=== PATIENT | male | born 1965 | race Caucasian/White ===

== ENCOUNTER 2021-03-01 18:51 | Emergency (ER) | payer OTHER ==
[~2021-03-01] VITALS: Ht 180.3 cm; Wt 109.1 kg
--- NOTE | 2021-03-01 19:13 | PHYS DOC ---
General Adult EDM: Chief Complaint: BLOOD SUGAR PROBLEM HPI: HPI: Patient is a 55-year-old male who presents to the ER for hyperglycemia. Patient reports that he has had a headache, lightheadedness and tingling in his head so he went to urgent care because his blood sugars have been elevated and they told him that he had glucose in his urine and needed to go to the emergency department. Patient takes Jardiance, Metformin, Ozempic and Tresiba. Patient reports that his headache has resolved but he still is having lightheadedness. (ROBE OLIVER APRN) Review of Systems: Review of Systems: Constitutional: Denies fever or chills Eyes: Denies change in visual acuity Neurologic: See HPI Endocrine: Denies polyuria or polydipsia Psychiatric: Denies depression or anxiety (ROBE OLIVER APRN) Physical Exam: PE: Constitutional: Well developed, well nourished, no acute distress, non-toxic appearance. [] HENT: Normocephalic, atraumatic, bilateral external ears normal, oropharynx moist, no oral exudates, nose normal. [] Eyes: PERRL, EOMI, conjunctiva normal, no discharge. [] Neck: Normal range of motion, no tenderness, supple, no stridor. [] Cardiovascular:Heart rate regular rhythm, no murmur [] Lungs & Thorax: Bilateral breath sounds clear to auscultation [] Abdomen: Bowel sounds normal, soft, no tenderness, no masses, obese, no pulsatile masses. [] Skin: Warm, dry, no erythema, no rash. [] Back: Normal ROM Extremities: No tenderness, no cyanosis, no clubbing, ROM intact, no edema. [] Neurologic: Alert and oriented X 3, normal motor function, normal sensory function, no focal deficits noted. [] Psychologic: Affect normal, judgement normal, mood normal. [] (ROBE OLIVER APRN) Current Patient Data: Labs: Laboratory Tests Test 03/01/21 18:58 03/01/21 19:10 03/01/21 20:20 Glucose (Fingerstick) 325 mg/dL 261 mg/dL White Blood Count 7.6 x10^3/uL Red Blood Count 6.37 x10^6/uL Hemoglobin 17.0 g/dL Hematocrit 54.2 % Mean Corpuscular Volume 85 fL Mean Corpuscular Hemoglobin 27 pg Mean Corpuscular Hemoglobin Concent 31 g/dL Red Cell Distribution Width 16.8 % Platelet Count 118 x10^3/uL Neutrophils (%) (Auto) 84 % Lymphocytes (%) (Auto) 11 % Monocytes (%) (Auto) 5 % Eosinophils (%) (Auto) 0 % Basophils (%) (Auto) 0 % Neutrophils # (Auto) 6.4 x10^3uL Lymphocytes # (Auto) 0.9 x10^3/uL Monocytes # (Auto) 0.4 x10^3/uL Eosinophils # (Auto) 0.0 x10^3/uL Basophils # (Auto) 0.0 x10^3/uL Sodium Level 135 mmol/L Potassium Level 4.5 mmol/L Chloride Level 102 mmol/L Carbon Dioxide Level 22 mmol/L Anion Gap 11 Blood Urea Nitrogen 26 mg/dL Creatinine 1.1 mg/dL Estimated GFR (Cockcroft-Gault) 69.8 BUN/Creatinine Ratio 24 Glucose Level 336 mg/dL Calcium Level 8.6 mg/dL Total Bilirubin 0.5 mg/dL Aspartate Amino Transf (AST/SGOT) 68 U/L Alanine Aminotransferase (ALT/SGPT) 102 U/L Alkaline Phosphatase 230 U/L Total Protein 7.5 g/dL Albumin 3.5 g/dL Albumin/Globulin Ratio 0.9 Acetone Level Neg Current Medications Medications (Trade) Dose Ordered Sig/Vilma Route PRN Reason Start Time Stop Time Status Last Admin Dose Admin Sodium Chloride 1,000 ml @ 1,000 mls/hr 1X ONCE IV 03/01/21 19:15 03/01/21 20:14 DC 03/01/21 19:15 Laboratory Tests Test 03/01/21 18:58 Glucose (Fingerstick) 325 mg/dL (70-99) H (ROBE OLIVER APRN) EKG: EKG: [] (ROBE OLIVER APRN) Radiology/Procedures: Radiology/Procedures: [] (ROBE OLIVER APRN) Heart Score: C/O Chest Pain: No Risk Factors: Risk Factors: DM, Current or recent (<one month) smoker, HTN, HLP, family history of CAD, obesity. Risk Scores: Score 0 - 3: 2.5% MACE over next 6 weeks - Discharge Home Score 4 - 6: 20.3% MACE over next 6 weeks - Admit for Clinical Observation Score 7 - 10: 72.7% MACE over next 6 weeks - Early Invasive Strategies (ROBE OLIVER APRN) Course & Med Decision Making: Course & Med Decision Making Pertinent Labs and Imaging studies reviewed. (See chart for details) [] Patient is a 55-year-old male who presents in the ER for hyperglycemia. Work-up in the ER consisted of blood work. Patient reports that his headache has resolved. Patient treated with IV fluids. Patient's blood sugar upon arrival was 325. Following administration of a liter of normal saline, patient's blood sugar is 265. He has no anion gap, negative for ketones. Patient advised to continue taking his medications as directed and follow-up with his primary care provider. He was also educated to continue to monitor his blood sugars at home. I discussed with patient all findings and diagnostic testing as well as the need to follow-up with PCP for further evaluation and treatment or return to the ER if any new or worsening symptoms. Strict return precautions were also discussed at length. Patient voiced understanding and agreement with the plan. Patient is hemodynamically stable at the time of disp osition. (ROBE OLIVER APRN) Dragon Disclaimer: Dragon Disclaimer: This electronic medical record was generated, in whole or in part, using a voice recognition dictation system. (ROBE OLIVER APRN) Departure Departure: Impression: Primary Impression: Hyperglycemia Disposition: 01 HOME / SELF CARE / HOMELESS Condition: GOOD Referrals: URBANO STEWART (PCP) Patient Instructions: Hyperglycemia Additional Instructions: You are seen in the emergency department today for elevated blood sugar. This was lowered with IV fluids. Continue to take your diabetic meds as directed and continue to monitor your blood sugars at home. Follow-up with your primary care provider tomorrow regarding your ER visit. Please return to the emergency department if you develop chest pain, shortness of breath, dizziness or any new or worsening concerns. EMERGENCY DEPARTMENT GENERAL DISCHARGE INSTRUCTIONS Thank you for coming to [facility] ([facility]) today and trusting us with you care. We trust that you had a positivie experience in our Emergency Department. If you wish to speak to the department management, you may call the director at [phone]. YOUR FOLLOW UP INSTRUCTIONS ARE FOLLOWS: 1. Do you have a private Doctor? If you do not have a private doctor, please ask for a resource list of physicians or clinics that may be able to assist you with follow up care. 2. The Emergency Physician has interpreted your x-rays. The X-Ray specialist will also review them. If there is a change in the findings, you will be notified in 48 hours when at all possible. 3. A lab test or culture has been done, your results will be reviewed and you will be notified if you need a change in treatment. ADDITIONAL INSTRUCTIONS AND INFORMATION: 1. Your care today has been supervised by a physician who is specially trained in emergency care. Many problems require more than one evaluation for a complete diagnosis and treatment. We recommend that you schedule your follow up appointment as recommended to ensure complete treatment of you illness or injury. If you are unable to obtain follow up care and continue to have a problem, or if your condition worsens, we recommend that you return to the ED. 2. We are not able to safely determine your condition over the phone nor are we able to give sound medical advice over the phone. For these safety reasons, if you call for medical advice we will ask you to come to the ED for further evaluation. 3. If you have any questions regarding these discharge instructions please call the ED at [phone]. SAFETY INFORMATION: In the interest of safety, wellness, and injury prevention; we encourage you to wear your sealbelt, if you smoke; quite smoking, and we encourage family to use a protective helmet for bicycling and other sporting events that present an increased risk for head injury. IF YOUR SYMPTOMS WORSEN OR NEW SYMPTOMS DEVELOP, OR YOU HAVE CONCERNS ABOUT YOUR CONDITION; OR IF YOUR CONDITION WORSENS WHILE YOU ARE WAITING FOR YOUR FOLLOW UP APPOINTMENT; EITHER CONTACT YOUR PRIMARY CARE DOCTOR, THE PHYSICIAN WHOSE NAME AND NUMBER YOU WERE GIVEN, OR RETURN TO THE ED IMMEDIATELY. Attending Signature Attending Signature I have reviewed the PA/FURNITURE FABRICATOR's note and plan of care. I was available for co nsultation as needed during the patient's visit in the emergency department. I agree with the clinical impression, plan, and disposition. (JAROD RICHARD DO) ROBE OLIVER APRN Mar 01, 2021 19:13 JAROD RICHARD DO Mar 01, 2021 22:16
[2021-03-01] MEDS ORDERED: IV NORMAL SALINE 1,000ML 1,000 ML IV ONE (19:15)
[2021-03-01 19:22] VITALS: BP 155/89
[2021-03-01 19:44] LABS: CALCIUM 8.6 mg/dL (8.5-10.1); CREATININE 1.1 mg/dL (0.7-1.3); GFR 69.8; POTASSIUM 4.5 mmol/L (3.5-5.1)
[2021-03-01 19:56] LABS: ALBUMIN 3.5 g/dL (3.4-5.0); ALBUMIN/GLOBULIN RATIO 0.9 (1.0-1.7); TOTAL BILIRUBIN 0.5 mg/dL (0.2-1.0); TOTAL PROTEIN 7.5 g/dL (6.4-8.2)
[2021-03-01 20:10] LABS: BASO % 0 % (0-3); EOS % 0 % (0-3); HEMATOCRIT 54.2 % (39.0-53.0); LYMPH # 0.9 x10^3/uL (1.0-4.8); LYMPH % 11 % (24-48); MEAN CORPUSCULAR HEMOGLOBIN 27 pg (25-35); MEAN CORPUSCULAR HGB CONC 31 g/dL (31-37); MEAN CORPUSCULAR VOLUME 85 fL (79-100); MONO # 0.4 x10^3/uL (0.0-1.1); MONO % 5 % (0-9); NEUT # 6.4 x10^3uL (1.8-7.7); NEUT % 84 % (31-73); PLATELET COUNT 118 x10^3/uL (140-400); RED BLOOD COUNT 6.37 x10^6/uL (4.30-5.70); RED CELL DISTRIBUTION WIDTH 16.8 % (11.5-14.5); WHITE BLOOD COUNT 7.6 x10^3/uL (4.0-11.0)
[2021-03-01 20:55] LABS: CLARITY,URINE CLEAR; COLOR,URINE YELLOW
[2021-03-01 20:56] LABS: BACTERIA,URINE 0 /HPF (0-FEW); BILIRUBIN,URINE NEG (NEG); GLUCOSE,URINE 500 mg/dL (NEG); NITRITE,URINE NEG (NEG); RBC,URINE 0 /HPF (0-2); UROBILINOGEN,URINE 0.2 mg/dL (0.2 mg/dL); WBC,URINE 0 /HPF (0-4)
== END 2021-03-01 20:47 | disposition home or self-care (01) ==
LOC: ER 18:51
DX: R73.9 Hyperglycemia, unspecified (principal); R51.9 Headache, unspecified; R42 Dizziness and giddiness
CPT/HCPCS: 36415; 80053; 81001; 82010; 82947; 85025; 96360; 99283; J7030

== ENCOUNTER 2021-07-02 10:44 | Emergency (ER) | payer OTHER ==
[~2021-07-02] VITALS: Ht 180.3 cm; Wt 111.0 kg
[2021-07-02] MEDS: DIPHTH,PERTUSS(ACELL),TET TOX 0.5 ML DISP.SYRIN. VAX IM ONE (11:21)
--- NOTE | 2021-07-02 11:26 | PHYS DOC ---
Past History Past Surgical History: Other Additional Past Surgical Histo: UMBILICAL HERNIA REPAIR (BLAISE GEORGE APRN) Alcohol Use: Rarely (BLAISE GEORGE APRN) Adult General Chief Complaint Chief Complaint: LACERATION/AVULSION HPI HPI Patient is a 56-year-old male who presents emergency department with chief complaint of a scalp laceration. Patient states he was shoveling snow just prior to arrival when he slipped and fell backwards striking his head on a concrete porch edge. Patient denies loss of consciousness, reports mild head pain, denies neck pain. Patient denies visual disturbances, dizziness, syncopal or near syncopal episodes. Patient denies nausea. Patient denies injuring other parts of his body. Patient denies other physical complaints or physical concerns. Patient reports his last tetanus immunization was greater than 5 years ago. Denies allergies to medications. Patient reports a past medical history of HIV, type 2 diabetes, states he is being worked up for hypertension by his primary care physician but has not been started on blood pressure medica tions as of this time. (BLAISE GEORGE APRN) Review of Systems Review of Systems 14 body systems of review of systems have been reviewed. See HPI for pertinent positives and negative responses, otherwise all other systems are negative, nonpertinent or noncontributory. Constitutional: Negative except as outlined in HPI above. Skin: Negative except as outlined in HPI above. Eyes: Negative except as outlined in HPI above. HENT: Negative except as outlined in HPI above. Respiratory: Negative except as outlined in HPI above. Cardiovascular: Negative except as outlined in HPI above. GI: Negative except as outlined in HPI above. : Negative except as outlined in HPI above. Musculoskeletal: Negative except as outlined in HPI above. Integument: Negative except as outlined in HPI above. Neurologic: Negative except as outlined in HPI above. Endocrine: Negative except as outlined in HPI above. Lymphatic: Negative except as outlined in HPI above. Psychiatric: Negative except as outlined in HPI above. (BLAISE GEORGE APRN) Current Medications Current Medications Current Medications Medications (Trade) Dose Ordered Sig/Vilma Start Time Stop Time Status Last Admin Dose Admin Diphtheria/ Tetanus/Acell Pertussis (Boostrix) 0.5 ml ONCE ONCE 07/02/21 11:15 07/02/21 11:18 DC 07/02/21 11:21 0.5 ML (BLAISE GEORGE APRN) Allergies Allergies Allergies Coded Allergies Type Severity Reaction Last Updated Verified No Known Drug Allergies 07/02/21 No (BLAISE GEORGE APRN) Physical Exam Physical Exam Constitutional: Well developed, well nourished, no acute distress, non-toxic appearance. 56-year-old male holding bandaged tobacco head otherwise in no apparent distress. HENT: Normocephalic, contusion with laceration to occipital parietal scalp, laceration is partial skin thickness, bleeding controlled with pressure bandage, no skull depression or crepitus appreciated, contusion with laceration measuring 4 cm. No raccoon eyes, no donis's sign, bilateral TMs intact and within normal limits, no malocclusion, patient speaking in normal voice tones. Eyes: Conjunctiva normal, no discharge. Satisfactory 6 cardinal eye movements. Neck: Normal range of motion, no stridor. No C-spine pain to palpation, no pain to palpation of muscular structures of the neck. Cardiovascular: No cyanosis appreciated, distal cap refill less than 2 seconds. Regular rate and rhythm. 1 S2. Lungs & Thorax: Patient is in no respiratory distress, no audible adventitious lung sounds appreciated. Abdomen: Nontender, no abnormalities noted. Skin: Warm, dry, no erythema, no rash. See HEENT note for focused skin examination. Back: No tenderness, no deformities. Extremities: No tenderness, no cyanosis, no clubbing, ROM intact, no edema. Neurologic: Alert and oriented X 3, normal motor function, normal sensory function, no focal deficits noted. Psychologic: Affect normal, judgement normal, mood normal. (BLAISE GEORGE APRN) Current Patient Data Vital Signs Vital Signs Date Time Temp Pulse Resp B/P (MAP) Pulse Ox O2 Delivery O2 Flow Rate FiO2 07/02/21 11:08 98.7 110 18 187/104 (131) 97 Room Air (BLAISE GEORGE APRN) EKG EKG [] (BLAISE GEORGE APRN) Radiology/Procedures Radiology/Procedures REASON: Slip and fall, occipital parietal laceration PROCEDURE: CT HEAD AND CERVICAL SPINE WO STUDY: CT head and cervical spine without contrast INDICATION: Fall. Scalp injury. COMPARISON: None. TECHNIQUE: Axial CT imaging through the head and cervical spine without the use of intravenous contrast. Sagittal and coronal reformats were obtained. One or more of the following individualized dose reduction techniques were utilized for this examination: 1. Automated exposure control 2. Adjustment of the mA and/or kV according to patient size 3. Use of iterative reconstruction technique. FINDINGS: CT head: No acute intracranial hemorrhage. Portillo-white matter differentiation is maintained. No localized mass effect, midline shift or hydrocephalus. Left paramidline parietal scalp contusion/laceration approaching the vertex, image 28 series 2. No depressed calvarial fracture. Normally aerated mastoid air cells and partially imaged paranasal sinuses. CT cervical spine: No acute fracture or traumatic malalignment. No paraspinous hematoma. Multilevel degenerative changes to include the atlantodental interface. Osseous neural foraminal narrowing greatest bilaterally at C6-C7. Central canal stenosis also favored greatest at C6-C7 but incompletely characterized. There may be a small right thyroid lobe nodule but not meeting size criteria for dedicated follow-up. IMPRESSION: CT head: 1. Posterior/left paramidline scalp contusion/laceration. No depressed calvarial fracture or acute intracranial hemorrhage. CT cervical spine: 1. No acute fracture or traumatic malalignment. 2. Degenerative changes greatest at C6-C7. Electronically signed by: SHIVAM FLAHERTY MD (07/02/2021 12:21 PM) [id number] (BLAISE GEORGE APRN) Heart Score C/O Chest Pain: No Risk Factors: Risk Factors: DM, Current or recent (<one month) smoker, HTN, HLP, family history of CAD, obesity. Risk Scores: Risk Factors: DM, Current or recent (<one month) smoker, HTN, HLP, family history of CAD, obesity. (BLAISE GEORGE APRN) Course & Med Decision Making Course & Med Decision Making Pertinent Labs and Imaging studies reviewed. (See chart for details) 56-year-old male, vital signs reviewed, presents emerged from concerning scalp laceration after slip and fall while shoveling snow. See laceration repair note, will CT head and C-spine, patient's tetanus immunization was greater than 5 years, will bring up-to-date with Tdap medication injection. Offered pain medication, patient denies need at this time. CT head and C-spine negative for acute findings. Patient reports his head and neck are starting to ache more, will order p.o. pain medications. Discussed with patient stapled laceration closure care, reviewed head injury precautions, reviewed Tdap immunization, discussed with patient strict follow-up primary care for staple removal, ongoing evaluation of hypertension, return to ER precautions or concerns, patient gave verbal understanding of and is amenable to ED discharge planning. Discussed with the patient all findings and diagnostic testing as well as the need to follow-up with their primary care provider for further evaluation and treatment or return to the ED if any new or worsening symptoms. Strict return precautions were also discussed at length, the patient voiced understanding and agreement with the discharge planning. The patient was nontoxic in appearance, in no apparent distress, and hemodynamically stable at the time of disposition. (BLAISE GEORGE APRN) Dragon Disclaimer Dragon Disclaimer This electronic medical record was generated, in whole or in part, using a voice recognition dictation system. (BLAISE GEORGE APRN) Laceration Repair Lac Repair Indication: Scalp laceration Time: 1300 Confirmed: Patient, procedure, side, and site correct. Consent: Patient, has given verbal consent. Description/repair Procedure: The patient was placed in the appropriate position and anesthesia around the laceration was achieved with 4 cc 1% lidocaine without epinephrine. The area was then cleansed with Betadine solution, vigorously irrigated with 500 cc normal saline. The laceration was then explored for foreign bodies, there are no visual foreign bodies present. The laceration was then closed with 5 dermal susie, the wound area was then dressed with bacitracin by ED nursing staff. Complexity: Single layer. Post procedure exam: Circulation, motor, sensory examination intact, bleeding controlled. Total repaired wound length: 4 cm. Other Items: There were no other items. The patient tolerated the procedure well. Complications: There were no complications. Performed by: Blaise Tello, MARINE ARCHITECT-C Supervision: Dr. Cary was present for consult regarding the critical aspects of the procedure including closure and post procedure exam. Total time: 5 minutes. (BLAISE GEORGE APRN) Attending Co-Sign The patient was seen and interviewed as well as examined at the bedside. The chart was reviewed. The case was discussed. Agree with the plan of care. (MOOKIE CARY DO) Departure Departure: Impression: Primary Impression: Fall Additional Impressions: Scalp laceration Scalp contusion Hypertension Disposition: HOME / SELF CARE / HOMELESS Condition: GOOD Referrals: URBANO WHITTINGTON (PCP) Patient Instructions: Staple Wound Closure, [id number] Additional Instructions: You were seen today in the emergency department for a laceration to your scalp after a slip and fall while shoveling snow. You suffered a 4 cm laceration that required 5 susie to repair. The susie do not dissolve, they will require removal in 7 to 10 days. Please follow-up with your primary care physician Dr. Whittington for staple removal. Keep the laceration site clean and dry, apply antibiotic ointment such as bacitracin or Neosporin 2-3 times a day. Because of the fall, you may experience muscle stiffness, I have prescribed for you ibuprofen for pain and discomfort, have also prescribed a muscle relaxer to take for muscle stiffness. Please take as directed, do not operate heavy machinery or perform potentially dangerous actions while taking a muscle relaxer. Your initial blood pressure was hypertensive, your blood pressure did reduce during your stay in the emergency department, however you had mentioned your primary care physician is considering starting you on blood pressure medications, please follow-up with your primary care doctor to reevaluate your blood pressure and consider blood pressure medication treatment. Also, follow-up with your primary care physician regarding your slip and fall that resulted in a head injury, a CT scan of your head and neck was performed today, there were no signs of broken bones, stroke, head bleed, or other concerning head or neck injury, however you may experience ongoing symptoms related to your head injury that may include headaches, aches and pains, please see Dr. Whittington for ongoing symptoms related to your fall. Please return immediately to the emergency department for a sudden onset of severe headache, projectile vomiting, passing out spells, vision changes or vision loss, or other concerns. Thank you for visiting our Emergency Department. It was a pleasure taking care of you today in the emergency department and we appreciate you trusting us with your care. If any additional problems come up don't hesitate to return to visit us. Please follow up with your primary care provider so they can plan additional care if needed and know about the problem that you had. If symptoms worsen come back to the Emergency Department. Any concerning symptoms that start such as chest pain, shortness of air, weakness or numbness on one side of the body, running high fevers or any other concerning symptoms return to the ER. EMERGENCY DEPARTMENT GENERAL DISCHARGE INSTRUCTIONS Thank you for coming to [facility] (ED) today and trusting us with you care. We trust that you had a positivie experience in our Emergency Department. If you wish to speak to the department management, you may call the director at [phone]. YOUR FOLLOW UP INSTRUCTIONS ARE FOLLOWS: 1. Do you have a private Doctor? If you do not have a private doctor, please ask for a resource list of physicians or clinics that may be able to assist you with follow up care. 2. The Emergency Physician has interpreted your x-rays. The X-Ray specialist will also review them. If there is a change in the findings, you will be notified in 48 hours when at all possible. 3. A lab test or culture has been done, your results will be reviewed and you will be notified if you need a change in treatment. ADDITIONAL INSTRUCTIONS AND INFORMATION: 1. Your care today has been supervised by a physician who is specially trained in emergency care. Many problems require more than one evaluation for a complete diagnosis and treatment. We recommend that you schedule your follow up appointment as recommended to ensure complete treatment of you illness or injury. If you are unable to obtain follow up care and continue to have a problem, or if your condition worsens, we recommend that you return to the ED. 2. We are not able to safely determine your condition over the phone nor are we able to give sound medical advice over the phone. For these safety reasons, if you call for medical advice we will ask you to come to the ED for further evaluation. 3. If you have any questions regarding these discharge instructions please call the ED at [phone]. SAFETY INFORMATION: In the interest of safety, wellness, and injury prevention; we encourage you to wear your sealbelt, if you smoke; quite smoking, and we encourage family to use a protective helmet for bicycling and other sporting events that present an increased risk for head injury. IF YOUR SYMPTOMS WORSEN OR NEW SYMPTOMS DEVELOP, OR YOU HAVE CONCERNS ABOUT YOUR CONDITION; OR IF YOUR CONDITION WORSENS WHILE YOU ARE WAITING FOR YOUR FOLLOW UP APPOINTMENT; EITHER CONTACT YOUR PRIMARY CARE DOCTOR, THE PHYSICIAN WHOSE NAME AND NUMBER YOU WERE GIVEN, OR RETURN TO THE ED IMMEDIATELY. Scripts Ibuprofen (IBUPROFEN) 600 Mg Tablet 600 MG PO PRN Q6-8HRS PRN for PAIN, #30 TAB 0 Refills Prov: BLAISE GEORGE APRN 07/02/21 Cyclobenzaprine Hcl (CYCLOBENZAPRINE HCL) 10 Mg Tablet 1 TAB PO TID PRN PRN for PAIN, #12 TAB 0 Refills Prov: BLAISE GEORGE APRN 07/02/21 Problem Qualifiers Primary Impression: Fall Encounter type: initial encounter Qualified Codes: W19.XXXA - Unspecified fall, initial encounter Additional Impressions: Scalp laceration Encounter type: initial encounter Qualified Codes: S01.01XA - Laceration without foreign body of scalp, initial encounter Scalp contusion Encounter type: initial encounter Qualified Codes: S00.03XA - Contusion of scalp, initial encounter Hypertension Hypertension type: unspecified Qualified Codes: I10 - Essential (primary) hypertension BLAISE GEORGE APRN Jul 02, 2021 11:26 MOOKIE CARY DO Jul 03, 2021 06:09
--- NOTE | 2021-07-02 12:24 | RAD ---
STUDY: CT head and cervical spine without contrast INDICATION: Fall. Scalp injury. COMPARISON: None. TECHNIQUE: Axial CT imaging through the head and cervical spine without the use of intravenous contra st. Sagittal and coronal reformats were obtained. One or more of the following individualized dose reduction techniques were utilized for this examinat ion: 1. Automated exposure control 2. Adjustment of the mA and/or kV according to patient size 3. Use of iterative reconstruction technique. FINDINGS: CT head: No acute intracranial hemorrhage. Portillo-white matter differentiation is maintained. No localized mass effect, midline shift or hydrocephalus. Left paramidline parietal scalp contusion/laceration approaching the vertex, image 28 series 2. No de pressed calvarial fracture. Normally aerated mastoid air cells and partially imaged paranasal sinuses . CT cervical spine: No acute fracture or traumatic malalignment. No paraspinous hematoma. Multilevel degenerative changes to include the atlantodental interface. Osseous neural foraminal narr owing greatest bilaterally at C6-C7. Central canal stenosis also favored greatest at C6-C7 but incomp letely characterized. There may be a small right thyroid lobe nodule but not meeting size criteria for dedicated follow-up. IMPRESSION: CT head: 1. Posterior/left paramidline scalp contusion/laceration. No depressed calvarial fracture or acute i ntracranial hemorrhage. CT cervical spine: 1. No acute fracture or traumatic malalignment. 2. Degenerative changes greatest at C6-C7. Electronically signed by: SHIVAM FLAHERTY MD (07/02/2021 12:21 PM) [id number]
[2021-07-02] MEDS: BACITRACIN ZINC TOPICAL OINT PACKET. TP ONE (12:45)
[2021-07-02] MEDS ORDERED: BACITRACIN/POLYMYXIN B OPHTH OINTMENT 3.5GM TUBE. ONE (12:49)
[2021-07-02] MEDS: IBUPROFEN 600 MG TABLET. PO ONE (12:53)
[2021-07-02] MEDS: HYDROcodone/APAP 5/325MG 1 TAB TABLET PO ONE (12:53)
[2021-07-02 12:55] VITALS: BP 163/93
[2021-07-02] MEDS: LIDOCAINE 1% Multi-Dose 20 ML VIAL. IJ ONE (12:55)
[2021-07-02] MEDS ORDERED: CYCL10TA19 PO (12:55)
[2021-07-02] MEDS ORDERED: IBUP600T16 PO (12:55)
== END 2021-07-02 13:05 | disposition home or self-care (01) ==
LOC: ER 10:44
DX: S01.01XA Laceration without foreign body of scalp, initial encounter (principal); I10 Essential (primary) hypertension; W01.0XXA Fall on same level from slipping, tripping and stumbling without subsequent striking against object, initial encounter; Y93.H1 Activity, digging, shoveling and raking; Y92.89 Other specified places as the place of occurrence of the external cause; Y99.8 Other external cause status
CPT/HCPCS: 12002; 70450; 72125; 90471; 90715; 99284; 99285